=== PATIENT | male | born 1990 | race Caucasian/White ===

== ENCOUNTER 2018-03-24 18:20 | Emergency (ER) | payer OTHER ==
[2018-03-24] MEDS ORDERED: IBUPROFEN 600 MG TABLET PO ONE (18:26)
--- NOTE | 2018-03-24 18:31 | Emergency Department Record ---
History of Present Illness - General Chief complaint: Extremity Problem Stated complaint: ROLLED RT ANKLE/PAIN Time Seen by Provider: 03/24/18 18:25 Source: Patient Mode of Arrival: Ambulatory Limitations: No limitations - History of Present Illness Initial comments: 27 yo male presents after a mis step on an uneven surface. He has lateral right foot and ankle pain. No other injuries. He has pain with weight bearing. No history of right ankle prior injury or disease. MD Complaint: Joint pain, Joint swelling Location: Right -: Yes Arthralgia Radiation: Distal Quality: Aching Consistency: Constant Improves with: Immobilization Worsens with: Palpation, Weight bearing Associated Symptoms: Denies other symptoms - Related Data Previous Rx's Medication Instructions Recorded Ibuprofen [Motrin 600Mg] 600 mg PO Q8H #25 tablet 03/24/18 Allergies Allergy/AdvReac Type Severity Reaction Status Date / Time No Known Drug Allergies Allergy Verified 03/24/18 18:27 Review of Systems Constitutional: Denies: Chills, Fever Eyes: Denies: Eye discharge ENT: Denies: Congestion Respiratory: Denies: Cough Cardiovascular: Denies: Chest pain Endocrine: Denies: Fatigue Gastrointestinal: Denies: Abdominal pain, Diarrhea, Nausea, Vomiting Genitourinary: Denies: Dysuria, Frequency Musculoskeletal: Reports: Arthralgia Skin: Denies: Bruising, Change in color, Rash Neurological: Denies: Headache Psychiatric: Denies: Anxiety Hematological/Lymphatic: Denies: Easy bleeding, Easy bruising, Swollen glands Physical Exam - General General Appearance: Alert, Oriented x3, Cooperative, No acute distress Limitations: No limitations - Head Head exam: Atraumatic, Normal inspection - Eye Eye exam: Normal appearance - ENT ENT exam: Normal exam Ear exam: Normal external inspection Nasal Exam: Normal inspection Mouth exam: Normal external inspection - Neck Neck exam: Normal inspection - Cardiovascular Peripheral Pulses: 2+: Dorsalis Pedis (R) - Extremities Extremities exam: Normal inspection, Joint swelling, Normal capillary refill, Tenderness. negative: Calf tenderness, Pedal edema Image of Feet: 1 - tender lateral ankle to the mid foot, no deformity, proximal fibula at the knee is non tender - Neurological Neurological exam: Alert, Oriented X3 - Psychiatric Psychiatric exam: Normal affect, Normal mood - Skin Skin exam: Dry, Intact, Normal color, Warm Course - Reevaluation(s) Reevaluation #1: 03/24/18 19:16 The foot and ankle XR's are negative for acute fracture He will be given crutches until pain improve then use the donjoy 2-3 weeks 03/24/18 19:21 We discussed home care, reasons to return, crutch and boot use, and follow up if not improving to investigate for other possible injuries. Disposition Disposition: Discharge Clinical Impression: Ankle sprain Qualifiers: Encounter type: initial encounter Involved ligament of ankle: unspecified ligament Laterality: right Qualified Code(s): S93.401A - Sprain of unspecified ligament of right ankle, initial encounter Sprain of foot, right Qualifiers: Encounter type: initial encounter Qualified Code(s): S93.601A - Unspecified sprain of right foot, initial encounter Disposition: Home, Self-Care Condition: (1) Good Instructions: Ankle Sprain (ED) Additional Instructions: Ice and elevate the foot and ankle to minimize swelling Use the crutches and boot for support and comfort Follow up with your doctor in a week in the pain continues Prescriptions: Ibuprofen [Motrin 600Mg] 600 mg PO Q8H #25 tablet Referrals: WILLIAMS KILPATRICK [MEDICAL DOCTOR] - Forms: Patient Portal Access Time of Disposition: 19:17 Quality - Quality Measures Quality Measures: N/A - Blood Pressure Screening Does Patient Have Any of the Following: No Blood Pressure Classification: Hypertensive Reading Systolic Measurement: 146 Diastolic Measurement: 105 Screening for High Blood Pressure: < Pre-Hypertensive BP, F/U Documented > [ [id number]] Pre-Hypertensive Follow-up Interventions: Referral to alternative/primary care provider.
--- NOTE | 2018-03-25 13:34 | RADIOLOGY REPORT ---
EXAM: RIGHT ANKLE HISTORY: PATIENT FELL WITH INJURY TO RIGHT ANKLE LATERALLY AND FOOT PAIN. TECHNIQUE: Three views of the right ankle were obtained. Comparison; None. Encounter: Initial. FINDINGS: Mild soft tissue swelling particularly laterally. No definite fracture of the right ankle identified and no dislocation seen. Suggestion of a partial cleft along the articular surface of the posterior malleolus on the lateral view is not identified on the lateral foot x-ray from today as well and is probably just due to overlapping bony structures. If ankle symptoms persist , a follow-up study in 10-14 days time would be suggested. IMPRESSION: 1. MILD SOFT TISSUE SWELLING. 2. NO DEFINITE FRACTURE IDENTIFIED. JOB NUMBER: [id number] MTDD
--- NOTE | 2018-03-25 13:36 | RADIOLOGY REPORT ---
EXAM: RIGHT FOOT HISTORY: PATIENT FELL WITH INJURY TO THE RIGHT ANKLE AND FOOT WITH PAIN. TECHNIQUE: Three views of the right foot were obtained. Comparison: None. Encounter: Initial. FINDINGS: The right foot appears intact with no definite fracture or dislocation seen. There may be some mild soft tissue swelling along the medial aspect of the foot. IMPRESSION: NO DEFINITE FRACTURE OF THE RIGHT FOOT IDENTIFIED. JOB NUMBER: [id number] MTDD
== END 2018-03-24 19:38 | disposition home or self-care (01) ==
LOC: ER 18:20
DX: S93.401A Sprain of unspecified ligament of right ankle, initial encounter (principal); S93.601A Unspecified sprain of right foot, initial encounter; W18.09XA Striking against other object with subsequent fall, initial encounter
CPT/HCPCS: 99283; 99284